=== PATIENT | male | born 1980 | race American Indian/Alaskan Native ===

== ENCOUNTER 2017-12-14 22:02 | Emergency (ER) | payer OTHER ==
[2017-12-14 22:08] VITALS: BP 162/88
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
[2017-12-15] MEDS ORDERED: ULTRAM PO ONE (02:25)
== END 2017-12-15 02:35 | disposition home or self-care (01) ==
LOC: ED 22:02
DX: S16.1XXA Strain of muscle, fascia and tendon at neck level, initial encounter (principal); S39.012A Strain of muscle, fascia and tendon of lower back, initial encounter; F17.200 Nicotine dependence, unspecified, uncomplicated; V49.49XA Driver injured in collision with other motor vehicles in traffic accident, initial encounter; Y93.89 Activity, other specified; Y92.89 Other specified places as the place of occurrence of the external cause; Y99.8 Other external cause status
CPT/HCPCS: 99282

== ENCOUNTER 2018-04-22 21:27 | Emergency (ER) | payer SELFPAY | END 2018-04-22 21:50 | disposition left against medical advice (07) | LOC: ED 21:27 | DX: R10.9 Unspecified abdominal pain (principal); Z53.21 Procedure and treatment not carried out due to patient leaving prior to being seen by health care provider ==